=== PATIENT | male | born 1995 | race Caucasian/White ===

== ENCOUNTER 2021-05-30 02:18 | Emergency (ER) | payer SELFPAY ==
[~2021-05-30] VITALS: Ht 175.3 cm; Wt 79.0 kg
[2021-05-30] MEDS ORDERED: ACETAMINOPHEN 325MG TABLET PO ONE (03:00)
[2021-05-30] MEDS ORDERED: LIDOCAINE HCL 1% 20ML VIAL (Pyxis) INJ INFIL ONE (03:00)
[2021-05-30] MEDS ORDERED: ONDANSETRON HCL 4MG/2ML INJ IV ONE (03:30)
[2021-05-30] MEDS ORDERED: PROPOFOL 200MG/20ML VIAL IV ONE (03:30)
[2021-05-30] MEDS ORDERED: NAPR-681 MT (05:05)
[2021-05-30 06:08] VITALS: BP 110/75
== END 2021-05-30 06:28 | disposition home or self-care (01) ==
LOC: ER 03:26
DX: S43.014A Anterior dislocation of right humerus, initial encounter (principal); X58.XXXA Exposure to other specified factors, initial encounter; Y93.89 Activity, other specified; Y92.89 Other specified places as the place of occurrence of the external cause
CPT/HCPCS: 23650; 73030; 96374; 99152; 99285; J2405; J2704; J3490; Z7610; L3670

== ENCOUNTER 2021-07-13 13:05 | Emergency (ER) | payer SELFPAY ==
[~2021-07-13] VITALS: Ht 175.3 cm; Wt 80.0 kg
[~2021-07-13 13:05] MED LIST: NAPR-681 MT
[2021-07-13] MEDS ORDERED: IBUPROFEN 800MG TABLET PO ONE (13:30)
[2021-07-13 14:25] VITALS: BP 126/72
[2021-07-13] MEDS ORDERED: IBUP-2030 MT (14:25)
== END 2021-07-13 14:38 | disposition home or self-care (01) ==
LOC: ER 13:05
DX: S93.492A Sprain of other ligament of left ankle, initial encounter (principal); X50.1XXA Overexertion from prolonged static or awkward postures, initial encounter; Y93.89 Activity, other specified; Y92.9 Unspecified place or not applicable
CPT/HCPCS: 73610; 99283

== ENCOUNTER 2022-05-31 13:20 | Emergency (ER) | payer MEDICAID ==
[~2022-05-31] VITALS: Ht 175.3 cm; Wt 88.0 kg
[~2022-05-31 13:20] MED LIST changes: +IBUP-2030 MT
[2022-05-31] MEDS ORDERED: KETOROLAC 60MG/2ML VIAL IM ONE (13:45)
[2022-05-31] MEDS ORDERED: MORPHINE SULFATE 4 MG/ML CPJ (NOT FOR IM USE) IV ONE ×2 (14:00→15:15)
[2022-05-31] MEDS ORDERED: PROPOFOL 200MG/20ML VIAL IV ONE ×3 (16:00→17:45)
[2022-05-31 18:35] VITALS: BP 122/79
== END 2022-05-31 18:47 | disposition home or self-care (01) ==
LOC: ER 13:20
DX: S43.084A Other dislocation of right shoulder joint, initial encounter (principal); X58.XXXA Exposure to other specified factors, initial encounter; Y93.9 Activity, unspecified; Y92.9 Unspecified place or not applicable
CPT/HCPCS: 23650; 73030; 96372; 96374; 96376; 99152; 99285; J1885; J2270; J2704; A4565

== ENCOUNTER 2025-03-04 18:23 | Emergency (ER) | payer SELFPAY ==
[~2025-03-04] VITALS: Ht 175.3 cm; Wt 82.0 kg
[~2025-03-04 18:23] MED LIST changes: +HYDR-4001 MT
[2025-03-04 18:34] VITALS: TEMP 36.3
[2025-03-04] MEDS: ONDANSETRON HCL 4MG/2ML INJ IV ONE (20:10)
[2025-03-04] MEDS: MORPHINE SULFATE 4 MG/ML INJ (FOR IV/IM USE) IV ONE (20:10)
[2025-03-04] MEDS: FENTANYL CITRATE/PF 50MCG/ML 2ML VIAL IV ONE (21:03)
[2025-03-04 21:06] VITALS: O2SAT 100
[2025-03-04] MEDS: SODIUM CHLORIDE 0.9% 1,000 ML IV ONE (21:28)
[2025-03-04] MEDS: PROPOFOL 200MG/20ML VIAL IV PRN (21:29)
[2025-03-04] MEDS: MIDAZOLAM HCL 2 MG/2 ML VIAL IV ONE (21:30)
[2025-03-04] MEDS: KETAMINE HCL 50 MG/ML 10ML IV ONE (22:14)
[2025-03-04] MEDS: PROPOFOL 200MG/20ML VIAL IV ONE (22:15)
[2025-03-04] MEDS: MORPHINE SULFATE 2 MG/ML INJ (NOT FOR IM USE) IV PRN (22:35)
[2025-03-04 22:45] VITALS: BP 148/83; PULSE 83; RESP 16; O2SAT 99
[2025-03-04] MEDS ORDERED: NALOXONE HCL 0.4MG/ML VIAL IV PRN (22:45)
== END 2025-03-04 23:16 | disposition left against medical advice (07) ==
LOC: ER 18:23 → EDBEDREQ 22:01 → EDBEDREQTM 22:01 → EDBEDREQSVC 22:01 → ENRESERV 23:02 → ER 23:16 → CMPBEDREQ 03-06 10:21
DX: S43.014A Anterior dislocation of right humerus, initial encounter (principal); X58.XXXA Exposure to other specified factors, initial encounter; Y93.89 Activity, other specified; Y92.89 Other specified places as the place of occurrence of the external cause; Y99.8 Other external cause status
CPT/HCPCS: 73030; 23650; 96361; 96374; 96375; 96376; 99152; 99285; J3010; J3490; J2250; J2405; J2704; J2270 ×2; J7030; Z7610 ×2; L3670